=== PATIENT | female | born 1995 | race Caucasian/White ===

== ENCOUNTER → 2018-08-02 11:05 | Outpatient (CLI) | payer MEDICAID, SELFPAY ==
[2017-01-14 06:27] VITALS: BMI 26.5
[2018-08-05 16:19] LABS: HPV HC, High Risk Negative (Negative); HPV Reflexed? YES, CHARGE PATIENT
== END ==
PROVIDERS: Visit Provider Obstetrics & Gynecology
DX: Z12.4 Encounter for screening for malignant neoplasm of cervix (principal)
CPT/HCPCS: 87624; 88175; G0145